=== PATIENT | male | born 2000 | race Caucasian/White ===

== ENCOUNTER 2021-11-21 03:30 | Emergency (ER) | payer OTHER ==
[~2021-11-21] VITALS: Ht 172.7 cm; Wt 70.3 kg
[2021-11-21 03:38] VITALS: BP 132/75
--- NOTE | 2021-11-21 04:30 | NUR ---
Dr. Tong examining patient.
[2021-11-21] MEDS ORDERED: ONDANSETRON 4 MG TAB PO ONE (04:35)
[2021-11-21] MEDS ORDERED: FAMOTIDINE 20 MG TAB PO ONE (04:35)
[2021-11-21] MEDS ORDERED: FAMO-92 PO (05:13)
[2021-11-21 05:15] VITALS: BP 128/75
--- NOTE | 2021-11-21 05:15 | NUR ---
Patient discharged with v/s stable. Written and verbal after care instructions given and explained by Dr. Tong. Patient alert, oriented and verbalized understanding of instructions. Ambulatory with steady gait. All questions addressed prior to discharge. ID band removed. Patient advised to follow up with PMD. Rx of Pepcid given. Patient educated on indication of medication including possible reaction and side effects. Opportunity to ask questions provided and answered.
== END 2021-11-21 05:15 | disposition home or self-care (01) ==
LOC: MED 03:30
DX: K29.70 Gastritis, unspecified, without bleeding (principal); R11.10 Vomiting, unspecified
CPT/HCPCS: 99283; Q0162